=== PATIENT | male | born 1955 | race Two or more races ===

== ENCOUNTER 2024-10-08 12:02 | Emergency (ER) | payer MEDICARE, OTHER, SELFPAY ==
[2024-10-08] VITALS (7 sets, daily range): BP systolic 105–124; BP diastolic 60–89; PULSE 78–124; RESP 15–18; TEMP 36.7–36.8; O2SAT 95–97; BMI 24.6
--- NOTE | 2024-10-08 12:29 | EKG_ITS ---
[facility] Test Date: 2024-10-08 Pat Name: CONG EDMONDS Department: Room: - Gender: Male [employer] Window [employer]er: : 1955 Requested By: Renee Gann Order Number: [id number] Reading MD: Renee Gann Measurements Intervals [place] Rate: 111 P: NE: QRS: 8 QRSD: 96 T: 73 QT: 316 QTc: 430 Interpretive Statements ATRIAL FIBRILLATION WITH RAPID VENTRICULAR RESPONSE ABNORMAL RHYTHM ECG No previous ECG available for comparison /store/S0/[id number]/ecg/[id number].pdf
[2024-10-08] MEDS: SODIUM CHLORIDE 0.9% 500 ML 1,000 ML 999 ML IV (12:40)
--- NOTE | 2024-10-08 12:40 | XR_ITS ---
Examination: AP chest single view TECHNIQUE: AP portable upright chest single view Date and time: October 11, 2024 1258 hours INDICATIONS: Chest pain beginning 2 days ago FINDINGS: Normal heart size No pneumonia or pulmonary edema moderate osteopenia IMPRESSION: No active disease
--- NOTE | 2024-10-08 12:41 | PD.EDWEAK ---
ED Weakness RME/HPI General Chief complaint: Weakness Stated complaint: hypotension Time Seen by Provider: 10/08/24 12:35 Arrival date/time: 10/08/24 12:02 RME / HPI RME / HPI Narrative: DR. PRICE MAIN ED EVALUATION: 69-year-old male with a history of dementia and baseline confusion presents to the Emergency Department [facility] with complaint of generalized weakness for the past 2?3 days. Home blood pressure was 74/50. After 500 LR, blood pressure was noted to go up to 100/60. History is limited due to baseline cognitive impairment, no further history at this time. Related Data Previous Rx's ?Medication ?Instructions ?Recorded metoprolol succinate 50 mg 50 mg PO QDAY #30 tabs 10/08/24 tablet,extended release 24 hr mirtazapine 7.5 mg tablet 7.5 mg PO QDAY #30 tabs 10/08/24 Allergies Allergy/AdvReac Type Severity Reaction Status Date / Time NKA Allergy Unknown Uncoded 09/30/02 17:54 No Known Allergies Allergy Uncoded 06/23/08 06:49 Review of Systems Review of Systems Systems Reviewed: All systems reviewed, normal except as documented Past Medical History Past Medical History NEUROLOGIC: Positive Dementia Social History SMOKING STATUS: Unknown if ever smoked ED Exam Narrative Physical exam: Constitutional: Awake, alert, pleasantly confused/ demented, no acute distress HEENT: NC, AT, EOMI Neck: Supple CV: systolic murmur Lungs: CTAB, no w/r/r, no respiratory distress. Abd: Soft, NT, NT, no HSM noted to palpation Extremities: No deformities, no edema noted Skin: Warm, dry, intact Course Course Course Narrative: 1315: Nurse informed that the patient had a follow up appointment at 2 PM and missed it. He was being followed for generalized weakness recently. 1507: Reviewed labs, for CBCs, CMPs, and trop no acute findings. BMP was elevated at 256. CXR shows no acute findings. HR is still fast and still in atrial fibrillation. Will give cardizem and magnesium. 1558: Reassessment at this time shows the patient is doing better. HR and BP are normal. Patient has baseline mentation per son who is at the bedside. Believe okay for discharge home at this time. Outpatient follow-up recommended. To continue home meds including metoprolol and prescription refill given for home. Medications: Rosuvastatin 10 mg daily, Mirapex 0.5 mg twice daily, Metoprolol ER 50 mg daily, Omeprazole 40 mg daily, Metformin 1 g twice daily, Duloxetine 60 mg daily, Mirtazapine 7.5 mg daily, and Amitriptyline 25 mg daily. Quality Measures none Orders Category Date Time Status Etiologist STAT Care 10/08/24 12:40 Completed Continuous Pulse Oximetry ONCE Care 10/08/24 12:40 Completed EKG (ED ONLY) *Do not use* NOW Care 10/08/24 12:29 Completed Insert IV STAT Care 10/08/24 12:40 Completed EKG (ED Only) Stat Exams 10/08/24 12:29 Draft XR chest 1V portable Stat Exams 10/08/24 12:40 Completed B-Type Natriuretic Peptide Stat Lab 10/08/24 12:52 Completed CBC Stat Lab 10/08/24 12:52 Completed Comprehensive Metabolic Panel Stat Lab 10/08/24 12:52 Completed Troponin I Stat Lab 10/08/24 12:52 Completed Diltiazem Inj [Cardizem Inj] Med 10/08/24 15:14 Discontinued 20 mg IV X1 ONE Diltiazem Inj [Cardizem Inj] Med 10/08/24 16:32 Discontinued 20 mg IV X1 ONE Diltiazem Inj [Cardizem Inj] Med 10/08/24 14:49 Discontinued 25 mg .ROUTE .STK-MED ONE Magnesium Sulfate 2 GM Ivpb [Magnesium Sulfate Ivpb] Med 10/08/24 15:12 Discontinued 2 gm in 50 ml IV X1 Magnesium Sulfate 2 GM Ivpb [Magnesium Sulfate Ivpb] Med 10/08/24 15:15 Discontinued 2 gm in 50 ml IV X1 Magnesium Sulfate 2 GM Ivpb [Magnesium Sulfate Ivpb] 50 Med 10/08/24 14:48 Discontinued ml IV .STK-MED Ringers Lactated 1000 ml [Lactated Ringers] 1,000 ml Med 10/08/24 14:49 Discontinued IV .STK-MED Ringers Lactated 500 ml [Lactated Ringers] 500 ml Med 10/08/24 15:16 Discontinued IV 999 mls/hr Ringers Lactated 500 ml [Lactated Ringers] 500 ml Med 10/08/24 16:36 Discontinued IV 999 mls/hr Sodium Chloride 0.9% 500 ml [Ns] 1,000 ml Med 10/08/24 12:40 Discontinued IV 999 mls/hr Vital Signs Vital signs: Vital Signs Temperature 98.0 F 10/08/24 12:03 Pulse Rate 100 10/08/24 12:03 Respiratory Rate 16 10/08/24 12:03 Blood Pressure 124/78 10/08/24 12:03 Pulse Oximetry (%) 97 10/08/24 12:03 Oxygen Delivery Method Room Air 10/08/24 12:03 Oxygen Flow Rate 6 10/08/24 12:03 Weakness MDM Narrative MDM Narrative:: Clare Braden am scribing for and in the presence of Dr. Price. Patient data External records reviewed:: [facility] previous records and EMS form Clinical information provided by:: patient and EMS Social determinants that could affect healthcare access:: none Patient has the following chronic illnesses:: dementia and baseline confusion How is presenting disease/condition affected by chronic disease/condition?: exacerbated by Evaluation data The following diagnostics were reviewed and interpreted by me:: lab results, radiology exam(s) and EKG tracing(s) Lab and/or radiology exams considered but not ordered:: none Interpretation Summary: Completed Medications / Prescriptions Medications or Prescriptions considered but not ordered:: none Medication administrations:: Medication Administration History Discontinued Medications Diltiazem HCl (Diltiazem Inj 5 Mg/Ml Vial 5 Ml) Confirm Administered Dose 25 mg .ROUTE .STK-MED ONE Stop: 10/08/24 14:50 Last Admin: 10/08/24 15:30 Dose: Not Given Documented By: SHAMAR Non-Admin Reason: Duplicate Medication on eMAR Diltiazem HCl (Diltiazem Inj 5 Mg/Ml Vial 5 Ml) 20 mg IV X1 ONE Stop: 10/08/24 15:15 Last Admin: 10/08/24 15:28 Dose: 20 mg Documented By: DB Diltiazem HCl (Diltiazem Inj 5 Mg/Ml Vial 5 Ml) 20 mg IV X1 ONE Stop: 10/08/24 16:33 Last Admin: 10/08/24 15:12 Dose: 20 mg Documented By: [facility] Comments: GIVEN DURING DOWN TIME Sodium Chloride (Ns) 1,000 mls @ 999 mls/hr IV .Q1H1M ONE Stop: 10/08/24 13:40 Last Infusion: 10/08/24 14:00 Dose: Infused Documented By: Admin: 10/08/24 12:40 Dose: 999 mls/hr Documented By: SHAMAR Magnesium Sulfate (Magnesium Sulfate Ivpb) Confirm Administered Dose 50 mls @ ud IV .STK-MED ONE Stop: 10/08/24 14:49 Last Admin: 10/08/24 15:30 Dose: Not Given Documented By: SHAMAR Non-Admin Reason: Duplicate Medication on eMAR Lactated Ringer's (Lactated Ringers) Confirm Administered Dose 1,000 mls @ ud IV .STK-MED ONE Stop: 10/08/24 14:50 Last Admin: 10/08/24 15:30 Dose: Not Given Documented By: SHAMAR Non-Admin Reason: Duplicate Medication on eMAR Magnesium Sulfate (Magnesium Sulfate Ivpb) 2 gm in 50 mls @ 25 mls/hr IV X1 ONE Stop: 10/08/24 17:14 Last Infusion: 10/08/24 17:12 Dose: Infused Documented By: Admin: 10/08/24 15:12 Dose: 25 mls/hr Documented By: SHAMAR Lactated Ringer's (Lactated Ringers) 500 mls @ 999 mls/hr IV .Q31M ONE Stop: 10/08/24 15:46 Last Infusion: 10/08/24 15:46 Dose: Infused Documented By: Admin: 10/08/24 15:12 Dose: 999 mls/hr Documented By: SHAMAR Magnesium Sulfate (Magnesium Sulfate Ivpb) 2 gm in 50 mls @ 25 mls/hr IV X1 ONE Stop: 10/08/24 17:11 Last Infusion: 10/08/24 15:12 Dose: 0 mls/hr Documented By: Admin: 10/08/24 15:12 Dose: 25 mls/hr Documented By: NICOLE Comments: GIVEN DURING DOWN TIME Lactated Ringer's (Lactated Ringers) 500 mls @ 999 mls/hr IV .Q31M ONE Stop: 10/08/24 17:06 Last Infusion: 10/08/24 15:50 Dose: Infused Documented By: Admin: 10/08/24 15:12 Dose: 999 mls/hr Documented By: KDAlesha Comments: GIVEN DURING DOWNTIME see above Consultations Consultation(s) initiated? (list below): No Diagnosis Weakness Differential Diagnosis: other (Orthostatic hypotension, sepsis, and acute kidney injury.) Most likely diagnosis given after review of the tests above:: Dehydration, atrial fibrillation with RVR?resolved Admission Indicated Admission indicated?: not indicated Admission Request Was there a request for admission?: No Disposition Plan Disposition Plan: Discharge Discharge Attestation Discharge Attestation: The patient and all family members were given an opportunity to ask questions and understood the discharge instructions. Discharge instructions specifically effects, indications for sooner follow up or return to the emergency department, and the expected course of current diagnosis. Patient condition: Stable Discharge Plan Plan Patient Disposition: HOME (Self Care) Patient condition on transfer: Stable Prescriptions/Referrals Prescriptions/Med Rec: New metoprolol succinate 50 mg tablet extended release 24 hr 50 mg PO QDAY Qty: 30 0RF mirtazapine 7.5 mg tablet 7.5 mg PO QDAY Qty: 30 0RF Problem List Clinical Impression: Atrial fibrillation with rapid ventricular response, Dehydration Patient/Caregiver Discharge Instructions Education Materials: Caring for End-Stage Dementia, AFL/Afib, Understanding Dementia, Dehydration, Dementia Caregiver Tips, Understanding Atrial Fibrillation Print Language: Yemeni Stand Alone Forms: Bailey Award Info., Patient Portal Info Letter
[2024-10-08 13:01] LABS: Basophils # (Auto) 0.1 Thou/mm3 (0.0-0.2); Basophils % (Auto) 1 % (0-2.5); Eosinophils # (Auto) 0.1 Thou/mm3 (0.0-0.5); Eosinophils % (Auto) 2 % (0-10); Hematocrit 39.8 % (41.0-53.0); Hemoglobin 13.8 g/dL (13.5-16.0); Immature Granulocytes Auto 0.02 Thou/mm3 (0.00-0.00); Lymphocytes # (Auto) 2.5 Thou/mm3 (1.0-4.8); Lymphocytes % (Auto) 31 % (10-50); Mean Corpuscular HGB Conc 34.7 g/dl (31.0-37.0); Mean Corpuscular Hemoglobin 29.4 pg (25.0-35.0); Mean Corpuscular Volume 85 fL (80-100); Monocytes # (Auto) 0.7 Thou/mm3 (0.0-0.8); Monocytes % (Auto) 9 % (0-12); Neutrophils # (Auto) 4.7 Thou/mm3 (1.8-7.7); Neutrophils % (Auto) 58 % (37-80); Nucleated Red Blood Cell # 0.00 Thou/mm3 (0.00-0.00); Nucleated Red Blood Cell % 0 /100 WBC (0); Platelet Count 284 Thou/mm3 (140-440); RDW Standard Deviation 45.6 fL (35.1-43.9); Red Blood Count 4.69 Miln/mm3 (4.50-5.90); White Blood Count 8.1 Thou/mm3 (3.8-10.6)
[2024-10-08 13:21] LABS: Alanine Aminotransferase 8 U/L (10-49); Albumin, Serum 3.7 gm/dL (3.4-4.8); Albumin/Globulin Ratio 1.6 (1.2-2.2); Alkaline Phosphatase 65 U/L (46-116); Anion Gap 11 (7-16); Aspartate Amino Transferase 21 U/L (0-34); BUN/Creatinine Ratio 8 Ratio (12-20); Bilirubin,Total 1.5 mg/dL (0.3-1.2); Blood Urea Nitrogen 9 mg/dL (9-23); Calcium 8.7 mg/dL (8.3-10.6); Calcium (Corrected) 8.9 mg/dL (8.5-10.1); Carbon Dioxide 24.7 mMol/L (20.0-31.0); Chloride 103 mMol/L (98-107); Creatinine (Component) 1.1 mg/dL (0.6-1.3); Estimated Creatinine Clearance 62.5 mL/min (>60); Globulin 2.3 gm/dL (2.3-3.5); Glucose 104 mg/dL (74-106); Osmolality,Calculated 276 (275-295); Potassium 3.7 mMol/L (3.4-5.1); Sodium 139 mMol/L (136-145); Total Protein 6.0 gm/dL (5.7-8.2); Troponin I < 0.002 ng/mL (0.0-0.045); eGFR > 60 See Note
[2024-10-08 13:27] LABS: B-Type Natriuretic Peptide 246 pg/mL (0-100)
[2024-10-08] MEDS: DILTIAZEM INJ 5 MG/ML VIAL 5 ML 20 MG IV ×2 (15:12→15:28)
[2024-10-08] MEDS: RINGERS LACTATED 500 ML 500 ML 999 ML IV ×2 (15:12)
[2024-10-08] MEDS: Magnesium Sulfate 2 GM Ivpb 2 GM/50 ML BAG IV ×2 (15:12)
== END 2024-10-08 17:51 | disposition home or self-care (01) ==
LOC: SERX 16:55
PROVIDERS: Emergency Provider Family Medicine
DX: I48.91 Unspecified atrial fibrillation (principal); E86.0 Dehydration; F03.90 Unspecified dementia, unspecified severity, without behavioral disturbance, psychotic disturbance, mood disturbance, and anxiety
CPT/HCPCS: 36415; 71045; 80053; 83880; 84484; 85025; 93005; 96361; 96365; 96366; 99284; J3475; J3490; J7120; J7999